=== PATIENT | female | born 1945 | race Caucasian/White ===

== ENCOUNTER 2019-05-18 12:57 | Emergency (ER) | payer MEDICARE ==
[~2019-05-18] VITALS: Ht 162.6 cm; Wt 97.7 kg
[2019-05-18] MEDS ORDERED: KETOROLAC TROMETHAMINE 60 MG/2 ML VIAL IM ONE (13:30)
[2019-05-18] MEDS ORDERED: KETOROLAC TROMETHAMINE 30 MG/ML VIAL ONE (13:44)
--- NOTE | 2019-05-18 14:07 | Diagnostic Imaging Report ---
Chest, PA and lateral. History: Upper back pain. Comparison: None available. Discussion: The cardiomediastinal silhouette and pulmonary vasculature are within normal limits. The lungs are clear without evidence of consolidation or effusion. There is minimal left basilar atelectasis. There are mild degenerative changes of the thoracic spine. IMPRESSION: No radiographic evidence of acute cardiopulmonary abnormality. Signed by: Bijan Mckinnon MD on 05/18/2019 2:04 PM
[2019-05-18 14:29] VITALS: BP 156/78
== END 2019-05-18 14:30 | disposition home or self-care (01) ==
LOC: FSED 12:57
DX: M54.6 Pain in thoracic spine (principal); X50.1XXA Overexertion from prolonged static or awkward postures, initial encounter; Y92.89 Other specified places as the place of occurrence of the external cause
CPT/HCPCS: 71046; 81003; 96372; 99283; J1885